=== PATIENT | male | born 1935 | race Hispanic/Latino ===

== ENCOUNTER 2019-05-10 23:42 | Emergency (ER) | payer MEDICARE ==
[~2019-05-10] VITALS: Ht 160 cm; Wt 73.5 kg
[2019-05-11 01:02] LABS: INR 0.89; PROTHROMBIN TIME 12.5 seconds (11.9-14.5)
[2019-05-11 01:03] LABS: PARTIAL THROMBOPLASTIN TIME 28.2 seconds (23.8-35.5)
[2019-05-11 01:06] LABS: BASOPHILS % 0.3 % (0.0-1.0); EOSINOPHILS # (AUTO) 0.2 (0.0-0.4); EOSINOPHILS % 2.8 % (0.0-6.0); HEMATOCRIT 42.4 % (38.2-49.6); HEMOGLOBIN 13.9 g/dL (14.0-18.0); LYMPHOCYTES # (AUTO) 1.2 (1.0-3.2); LYMPHOCYTES % 21.1 % (18.0-39.1); MEAN CORPUSCULAR HEMOGLOBIN 29.6 pg (28-32); MEAN CORPUSCULAR HGB CONC 32.8 g/dL (31-35); MEAN CORPUSCULAR VOLUME 90.4 fL (81-99); MONOCYTES # (AUTO) 0.5 (0.2-0.8); MONOCYTES % 8.9 % (4.4-11.3); NEUTROPHILS # (AUTO) 3.8 (2.1-6.9); NEUTROPHILS % 66.6 % (38.7-80.0); PLATELET COUNT 190 x10e3/uL (140-360); RED BLOOD COUNT 4.69 x10e6/uL (4.3-5.7); RED CELL DISTRIBUTION WIDTH 13.3 % (11.7-14.4)
[2019-05-11 01:17] LABS: ALANINE AMINOTRANSFERASE 24 IU/L (0-55); ALBUMIN 3.8 g/dL (3.5-5.0); ALBUMIN/GLOBULIN RATIO 1.1 (0.8-2.0); ALKALINE PHOSPHATASE 165 IU/L (40-150); ANION GAP 16.7 mmol/L (8-16); BLOOD UREA NITROGEN 18 mg/dL (7-26); BUN/CREATININE RATIO 17 (6-25); CALCIUM 10.3 mg/dL (8.4-10.2); CARBON DIOXIDE 23 mmol/L (22-29); CHLORIDE 106 mmol/L (98-107); CREATININE, SERUM 1.03 mg/dL (0.72-1.25); EST GLOMERULAR FILTRATION RATE > 60 ML/MIN (60-); GLUCOSE 97 mg/dL (74-118); POTASSIUM 4.7 mmol/L (3.5-5.1); SODIUM 141 mmol/L (136-145)
--- NOTE | 2019-05-11 01:18 | Diagnostic Imaging Report ---
PELVIS AP 1-2 VIEWS - 1 view HISTORY: Pain COMPARISON: None available. FINDINGS: See impression IMPRESSION: No acute displaced fracture or dislocation visualized. Signed by: Dr. Pop Garcia MD on 05/11/2019 1:15 AM
--- NOTE | 2019-05-11 01:23 | Diagnostic Imaging Report ---
EXAMINATION: CHEST SINGLE (NOT PORTABLE) INDICATION: ^FALL ^[id number] ^0045 COMPARISON: None FINDINGS: AP view TUBES and LINES: None. LUNGS: Limited by low lung volumes. Mild central vascular congestion, accentuated by low lung volumes. PLEURA: No pneumothorax. Suspected small left pleural effusion. HEART AND MEDIASTINUM: The cardiomediastinal silhouette is enlarged, accentuated by low lung volumes. Aorta is calcified and mildly tortuous. BONES AND SOFT TISSUES: No acute osseous lesion. Soft tissues are unremarkable. UPPER ABDOMEN: No free air under the diaphragm. IMPRESSION: Limited by low lung volumes. Mild vascular congestion and suspected small left pleural effusion. Signed by: Dr. Pop Garcia MD on 05/11/2019 1:19 AM
--- NOTE | 2019-05-11 01:35 | Diagnostic Imaging Report ---
ADDENDUM #1 6 x 3.4 cm left parietal occipital scalp soft tissue density mass possibly represents epidermal inclusion cyst. No acute hematoma. Finding discussed with ER physician Dr. Roman by phone at 2:30 AM on 05/11/2019. Signed by: Dr. Shantell Holcomb M.D. on 05/11/2019 2:34 AM ORIGINAL REPORT EXAMINATION: Head CT without contrast. HISTORY:Fall. COMPARISON:None. TECHNIQUE: Multidetector axial images were obtained from the foramen magnum to the vertex without contrast. The images were reconstructed using brain and bone algorithms. Thin section brain images were reformatted into coronal and sagittal planes. Dose modulation, iterative reconstruction, and/or weight based adjustment of the mA/kV was utilized to reduce the radiation dose to as low as reasonably achievable. Intravenous contrast: None IMAGE QUALITY: Acceptable. FINDINGS: Skull/scalp: Large left parieto-occipital scalp hematoma that approximately measures 6 x 3.4 cm. No radiopaque foreign body or soft tissue emphysema. No acute depressed or displaced calvarial fracture. Parenchyma: Nonspecific bilateral frontoparietal patchy white matter hypodensity are likely related to small vessel ischemic changes. No acute hemorrhage, mass or acute major vascular territorial infarct. Arteries: No density suggestive of thrombosis. Atherosclerotic calcification in bilateral carotid siphon. Dural sinuses: No abnormal density suggestive of thrombosis. Ventricles: No hydrocephalus or displacement. Extra-axial spaces: No abnormal density. Brain volume: Generalized age-related cerebral volume loss. Craniocervical junction: No mass, Chiari malformation, or basilar invagination. Sella: No mass. Paranasal/mastoid sinuses: Mucosal thickening in left posterior ethmoid sinus. IMPRESSION: 1. Large left parieto-occipital scalp edema/hematoma. No acute fracture. 2. No acute posttraumatic intracranial abnormality. 3. Moderate supratentorial white matter microvascular ischemic changes. 4. Generalized age-related cerebral volume loss. Signed by: Dr. Shantell Holcomb M.D. on 05/11/2019 1:32 AM
[2019-05-11 01:41] LABS: CREATINE KINASE 48 IU/L (30-200)
--- NOTE | 2019-05-11 01:41 | Diagnostic Imaging Report ---
History: Fall. Comparison studies: None Technique: Axial images were obtained through the cervical region.. Coronal and sagittal images reconstructed from the axial data. Dose modulation, iterative reconstruction, and/or weight based adjustment of the mA/kV was utilized to reduce the radiation dose to as low as reasonably achievable. Intravenous contrast: None Findings: Fractures: None. Soft tissue injuries: None. Atlantoaxial articulation: Intact. Alignment: Normal lordosis. No scoliosis. Cervicomedullary junction: No abnormalities. The foramen magnum is patent. Soft tissues: Multiple calcifications in heterogeneous 2 cm nodule in left lobe of thyroid gland. Vertebrae: No fractures, infection or neoplasm. Degenerative changes: C3-C4: Posterior disc osteophyte complex results in moderate canal stenosis. Severe right and moderate left foraminal stenosis due to facet and uncovertebral arthrosis. C4-C5: Mild bilateral foraminal stenosis due to advanced facet arthrosis. C5-C6: Moderate right foraminal stenosis due to facet and uncovertebral arthrosis. C6-C7: Mild right foraminal stenosis due to uncovertebral arthrosis. IMPRESSION: 1. No acute cervical spine fracture or dislocation. 2. Ligament, spinal cord and or vascular abnormalities cannot be excluded on the basis of this examination. 3. Cervical spondylosis as detailed above. 4. A 2 cm nodule in left lobe of thyroid gland can be further evaluated with dedicated thyroid ultrasonogram if previous workup has not been done. Signed by: Dr. Shantell Holcomb M.D. on 05/11/2019 1:38 AM
[2019-05-11 04:07] LABS: CLARITY,URINE CLOUDY (CLEAR); COLOR,URINE AMBER (YELLOW); LEUKOCYTE ESTERASE ,URINE NEGATIVE (NEGATIVE); NITRITE,URINE NEGATIVE (NEGATIVE); PROTEIN,URINE DIPSTICK 1+ (NEGATIVE)
[2019-05-11 04:08] LABS: BILIRUBIN,URINE 1+ (NEGATIVE); KETONES,URINE NEGATIVE (NEGATIVE); URINE UROBILINOGEN 1 mg/dL (0.2 - 1)
[2019-05-11 04:14] LABS: BACTERIA,URINE MANY /HPF; RBC,URINE >50 /HPF (0-5); WBC,URINE (MAN) 21-50 /HPF (0-5)
[2019-05-11 04:15] LABS: EPITHELIAL CELLS,URINE FEW /LPF
[2019-05-11] MEDS ORDERED: MEROPENEM 1GRAM 1 GM in SODIUM CHLORIDE 0.9% 100 ML 100 ML IV ONE (04:30)
[2019-05-11] MEDS ORDERED: MEROPENEM 1 GM VIAL ONE ×2 (04:51)
[2019-05-11] MEDS ORDERED: MEROPENEM 1GM 100 ML IV ONE (05:05)
--- OUTSIDE RECORDS SUMMARY | 2019-05-12 14:01 | XMS REPORT ---
Author [facility] Address Unknown Phone Unavailable Care Team Providers Care Heel Breaster Name Role Phone Lupe SAUL COOPER Unavailable Unavailable Problems This patient has no known problems. Allergies, Adverse Reactions, Alerts This patient has no known allergies or adverse reactions. Medications This patient has no known medications. Encounters Start Date/Time End Date/Time Encounter Type Admission Type Attending Clinicians Care Facility Care Department Encounter ID 2019-04-06 23:51:00 2019-04-06 19:38:00 Inpatient E [facility] MED [id number] Results Test Description Test Time Test Comments Text Results Atomic Results Result Comments CT CERVICAL SPINE WO 2019-05-11 01:32:00 [place] [id number] Patient Name: BARI AGOSTO MR #: [id number] : 1935 Age/Sex: 84/M Req #: [id number] Adm Physician: Ordered by: COOPER SAUL MD Report #: [id number] Location: ER Room/Bed: Procedure: [id number] CT/CT CERVICAL SPINE WO Exam Date: 05/11/19 Exam Time: 34 REPORT STATUS: Signed History: Fall. Comparison studies: None T echnique: Axial images were obtained through the cervical region.. Coronal and sagittal images reconstructed from the axial data. Dose modulation, iterative reconstruction, and/or weight based adjustment of the mA/kV was utilized to reduce the radiation dose to as low as reasonably achievable. Intravenous contrast: None Findings: Fractures: None. Soft tissue injuries: None. Atlantoaxial articulation: Intact. Alignment: Normal lordosis. No scoliosis. Cervicomedullary junction: No abnormalities. The foramen magnum is patent. Soft tissues: Multiple calcifications in heterogeneous 2 cm nodule in left lobe of thyroid gland. Vertebrae: No fractures, infection or neoplasm. Degenerative changes: C3-C4: Posterior disc osteophyte complex results in moderate canal stenosis. Severe right and moderate left foraminal stenosis due to facet and uncovertebral arthrosis. C4-C5: Mild bilateral foraminal stenosis due to advanced facet arthrosis. C5- C6: Moderate right foraminal stenosis due to facet and uncovertebral arthrosis. C6-C7: Mild right foraminal stenosis due to uncovertebral arthrosis. IMPRESSION: 1. No acute cervical spine fracture or dislocation. 2. Ligament, spinal cord and or vascular abnormalities cannot be excluded on the basis of this examination. 3. Cervical spondylosis as detailed above. 4. A 2 cm nodule in left lobe of thyroid gland can be further evaluated with dedicated thyroid ultrasonogram if previous workup has not been done. Signed by: Dr. Shantell Holcomb M.D. on 05/11/2019 1:38 AM Dictated By: SHANTELL HOLCOMB MD 7 Transcribed By: AMANDEEP on 05/11/19137 COPY TO: COOPER SAUL MD CT BRAIN WO 2019-05-11 01:26:00 [place] [address] Patient Name: BARI AGOSTO MR #: [id number] : 1935 Age/Sex: 84/M Req #: [id number] Adm Physician: Ordered by: COOPER SAUL MD Report #: [id number] Location: Room/Bed: Procedure: [id number] CT/CT BRAIN WO Exam Date: 05/11/19 Exam Time: 0030 REPORT STATUS: Signed ADDENDUM #1 6 x 3.4 cm left parietal occipital scalp soft tissue density mass possibly represents epidermal inclusion cyst. No acute hematoma. Finding discussed with ER physician Dr. Saul by phone at 2:30 AM on 05/11/2019. Signed by: Dr. Shantell Holcomb M.D. on 05/11/2019 2:34 AM ORIGINAL REPORT EXAMINATION: Head CT without contrast. HISTORY:Fall. COMPARISON:None. TECHNIQUE: Multidetector axial images were obtained from the foramen magnum to the vertex without contrast. The images were reconstructed using brain and bone algorithms. Thin section brain images were reformatted into coronal and sagittal planes. Dose modulation, iterative reconstruction, and/or weight based adjustment of the mA/kV was utilized to reduce the radiation dose to as low as reasonably achievable. Intravenous contrast: None IMAGE QUALITY: Acceptable. FINDINGS: Skull/scalp: Large left parieto- occipital scalp hematoma that approximately measures 6 x 3.4 cm. No radiopaque foreign body or soft tissue emphysema. No acute depressed or displaced calvarial fracture. Parenchyma: Nonspecific bilateral frontoparietal patchy white matter hypodensity are likely related to small vessel ischemic changes. No acute hemorrhage, mass or acute major vascular territorial infarct. Arteries: No density suggestive of thrombosis. Atherosclerotic calcification in bilateral carotid siphon. Dural sinuses: No abnormal density suggestive of thrombosis. Ventricles: No hydrocephalus or displacement. Extra-axial spaces: No abnormal density. Brain v olume: Generalized age-related cerebral volume loss. Craniocervical junction: No mass, Chiari malformation, or basilar invagination. Sella: No mass. Paranasal/mastoid sinuses: Mucosal thickening in left posterior ethmoid sinus. IMPRESSION: 1. Large left parieto-occipital scalp edema/hematoma. No acute fracture. 2. No acute posttraumatic intracranial abnormality. 3. Moderate supratentorial white matter microvascular ischemic changes. 4. Generalized age-related cerebral volume loss. Signed by: Dr. Shantell Holcomb M.D. on 05/11/2019 1:32 AM Dictated By: SHANTELL HOLCOMB MD 0234 Transcribed By: AMANDEEP on 05/11/19 013 COPY TO: COOPER SAUL MD CHEST SINGLE (NOT PORTABLE) 2019-05-11 01:15:00 [place] [address] Patient Name: BARI AGOSTO MR #: [id number] : 1935 Age/Sex: 84/M Req #: [id number] Adm Physician: Ordered by: COOPER SAUL MD Report #: [id number] Location: ER Room/Bed: Procedure: [id number] DX/CHEST SINGLE (NOT PORTABLE) Exam Date: 05/11/19 Exam Time: 44 REPORT STATUS: Signed EXAMINATION: CHEST SINGLE (NOT PORTABLE) INDICATION: [id number] COMPARISON: None FINDINGS: AP view TUBES and LINES: None. LUNGS: Limited by low lung volumes. Mild central vascular congestion, accentuated by low lung volumes. PLEURA: No pneumothorax. Suspected small left pleural effusion. HEART AND MEDIASTINUM: The cardiomediastinal silhouette is enlarged, accentuated by low lung volumes. Aorta is calcified and mildly tortuous. BONES AND SOFT TISSUES: No acute osseous lesion. Soft tissues are unremarkable. UPPER ABDOMEN: No free air under the diaphragm. IMPRESSION: Limited by low lung volumes. Mild vascular congestion and suspected small left pleural effusion. Signed by: Dr. Pop Rodriguez MD on 05/11/2019 1:19 AM Dictated By: POP RODRIGUEZ MD 8 Transcribed By: AMANDEEP on 05/11/19118 COPY TO: COOPER SAUL MD PELVIS AP 1-2 VIEWS 2019-05-11 01:14:00 [place] [address] Patient Name: BARI AGOSTO MR #: [id number] : 1935 Age/Sex: 84/M Req #: [id number] Adm Physician: Ordered by: COOPER SAUL MD Report #: [id number] Location: ER Room/Bed: Procedure: [id number] DX/PELVIS AP 1-2 VIEWS Exam Date: 05/11/19 Exam Time: 0040 REPORT STATUS: Signed PELVIS AP 1-2 VIEWS - 1 view HISTORY: Pain C OMPARISON: None available. FINDINGS: See impression IMPRESSION: No acute displaced fracture or dislocation visualized. Signed by: Dr. Pop Rodriguez MD on 05/11/2019 1:15 AM Dictated By: POP RODRIGUEZ MD 4 Transcribed By: AMANDEEP on 05/11/19114 COPY TO: COOPER SAUL MD
== END 2019-05-11 05:50 ==
LOC: ER 23:42
DX: Z04.3 Encounter for examination and observation following other accident (principal); W01.0XXA Fall on same level from slipping, tripping and stumbling without subsequent striking against object, initial encounter; Y92.128 Other place in nursing home as the place of occurrence of the external cause; N30.91 Cystitis, unspecified with hematuria; I10 Essential (primary) hypertension; I69.354 Hemiplegia and hemiparesis following cerebral infarction affecting left non-dominant side
CPT/HCPCS: 36415; 70450; 71045; 72125; 72170; 80053; 81001; 82550; 82553; 84484; 85025; 85610; 85730; 87086; 99284; J2185 ×2

== ENCOUNTER 2019-05-13 14:58 | Observation (INO) | payer MEDICARE ==
[~2019-05-13] VITALS: Ht 160 cm; Wt 73.5 kg
[2019-05-13 15:42] LABS: BASOPHILS % 0.3 % (0.0-1.0); EOSINOPHILS % 0.3 % (0.0-6.0); HEMATOCRIT 40.4 % (38.2-49.6); HEMOGLOBIN 13.4 g/dL (14.0-18.0); LYMPHOCYTES # (AUTO) 0.9 (1.0-3.2); LYMPHOCYTES % 10.5 % (18.0-39.1); MEAN CORPUSCULAR HEMOGLOBIN 30.1 pg (28-32); MEAN CORPUSCULAR HGB CONC 33.2 g/dL (31-35); MEAN CORPUSCULAR VOLUME 90.8 fL (81-99); MONOCYTES # (AUTO) 0.5 (0.2-0.8); MONOCYTES % 5.3 % (4.4-11.3); NEUTROPHILS # (AUTO) 7.3 (2.1-6.9); NEUTROPHILS % 83.3 % (38.7-80.0); PLATELET COUNT 213 x10e3/uL (140-360); RED BLOOD COUNT 4.45 x10e6/uL (4.3-5.7); RED CELL DISTRIBUTION WIDTH 13.2 % (11.7-14.4)
[2019-05-13 15:59] LABS: ALANINE AMINOTRANSFERASE 25 IU/L (0-55); ALBUMIN 3.6 g/dL (3.5-5.0); ALBUMIN/GLOBULIN RATIO 1.2 (0.8-2.0); ALKALINE PHOSPHATASE 160 IU/L (40-150); ANION GAP 15.8 mmol/L (8-16); BLOOD UREA NITROGEN 32 mg/dL (7-26); BUN/CREATININE RATIO 15 (6-25); CALCIUM 10.1 mg/dL (8.4-10.2); CARBON DIOXIDE 23 mmol/L (22-29); CHLORIDE 103 mmol/L (98-107); CREATINE KINASE 39 IU/L (30-200); CREATININE, SERUM 2.19 mg/dL (0.72-1.25); EST GLOMERULAR FILTRATION RATE 29 ML/MIN (60-); GLUCOSE 125 mg/dL (74-118); SODIUM 136 mmol/L (136-145)
--- NOTE | 2019-05-13 16:01 | Diagnostic Imaging Report ---
EXAMINATION: CHEST SINGLE (PORTABLE) INDICATION: Chest pain. COMPARISON: Chest radiograph 05/11/2019. FINDINGS: TUBES and LINES: None. LUNGS: Low lung volumes. Central vascular congestion with mild interstitial opacities. Linear subsegmental atelectasis in the right midlung. Patchy bibasilar opacities. PLEURA: No pleural effusion or pneumothorax. HEART AND MEDIASTINUM: The cardiomediastinal silhouette is unremarkable. There are atherosclerotic calcifications within the aorta. BONES AND SOFT TISSUES: No acute osseous abnormality. UPPER ABDOMEN: No free air under the diaphragm. Surgical clips project over the right upper quadrant. IMPRESSION: Low lung volumes with possible mild pulmonary interstitial edema. Patchy bibasilar opacities, likely atelectasis, although infection is possible in the appropriate clinical setting. Signed by: Dr. Zenaida Berry MD on 05/13/2019 3:58 PM
[2019-05-13 16:19] LABS: POTASSIUM 5.8 mmol/L (3.5-5.1)
[2019-05-13] MEDS ORDERED: SOD POLYSTYRENE SULFONATE SUSP 15 GM/60 ML BTL PO ONE (17:15)
[2019-05-13] MEDS ORDERED: DEXTROSE 50% SYRINGE 50 ML IV STA (17:58)
[2019-05-13] MEDS ORDERED: INSULIN REGULAR, HUMAN 100 UNIT/1 ML 3ML VIAL IV ONE (18:30)
[2019-05-13] MEDS ORDERED: SODIUM CHLORIDE 0.9% 500ML 500 ML IV STA (20:04)
--- NOTE | 2019-05-13 21:40 | NUR ---
Patient arrived to floor via stretcher. Very lethargic. AAOx1 Patient with dementia. Admit and assessment completed. Bolus of 500cc fluids given per MD order.
[2019-05-13] MEDS ORDERED: DEXTROSE 50% SYRINGE 50 ML IV ONE (21:59)
[2019-05-13 23:00] VITALS: BP 113/57
--- NOTE | 2019-05-13 23:44 | NUR ---
Chief complaint: Chest pain History of Present Illness Patient is an 83-year-old male with Past medical history of hypertension, hyperlipidemia, CVA with residual left-sided weakness, benign prostatic hyperplasia status post TURP, possible dementia who presented to ER/brought by [facility]. I was called by nursing staff and advise that patient was complaining of chest pain hence the patient was brought to the emergency department for further evaluation and treatment. I did speak with patient's [id number] who was at the bedside at the time of my evaluation in the emergency room department at [facility]. Specifically patient was having discomfort in the chest. He denies shortness of breath. No nausea, no vomiting, no abdominal pain. No fever no chills. He was complaining of discomfort in the rectal area. He denies having rectal bleeding. The patient has been treated recently for urinary tract infection and has been discharged approximately 4 weeks ago from [facility]. He was treated for presumed sepsis and did have alt ered mental status. There was no demonstratable bacteria but empirically treated for possible sepsis and his mental status did improve. The patient was brought to the hospital at [facility] a few days ago and evaluated for urinary tract infection and [place] [facility] [place] [facility]. Now the patient has been admitted for evaluation pertaining chest pain and noted to have dehydration with an elevated BUN of 2.1. Basically patient's creatinine is around 1.2 or so and not known to have a history of renal failure. He was also noted to have an elevated potassium level of 5.8. He is being admitted for the purpose of addressing these issues.No recent changes from patient baseline mental status Past Medical History: CVA (cerebrovascular accident) HTN (hypertension) HLD - Hyperlipidemia CT brain and cervical spine done at [facility] last demontrated no acute fracture grade I anterior listhesis of C4/C5, found to have a cystic lesion in the left occipital scalp, Resolved Kidney stones Family History: No family history items have been selected or recorded. Procedure history: Cholecystectomy TURP - Transurethral resection of prostate Cystourethroscopy Social History Social & Psychosocial Habits History of smoking in the past. Alcohol 04/07/2019 Use: Past Type: Beer Frequency: 3-5 times per week Substance Abuse 09/09/2015 Use: None OBJECTIVE: GENERAL: The patient has been in no distress, follows commands. He is oriented to person. Not to time. VITALS SIGNS: Vital signs: 92/52, respiration 18, pulse 65, temperature 97.9, O2 saturation in room air 99% HEENT: Atraumatic. NECK: Supple, no JVD. LUNGS: Clear to auscultation. CARDIOVASCULAR: Regular rate and rhythm. ABDOMEN: Soft, nontender and nondistended. EXTREMITIES: No edema. NEUROLOGIC: With left-sided weakness from previous stroke. Rectal examination: Internal hemorrhoids noted Lab data: CBC revealed hemoglobin 13.4, WBC 8.75, platelet count 230,000. Sodium 136, potassium 4.8, chloride 103, CO2 23, BUN 32, creatinine 2.19, glucose 125. Alkaline phosphatase 160. Troponin 0.001. EKG demonstrated normal sinus rhythm no acute changes Chest x-rays: IMPRESSION: Low lung volumes with possible mild pulmonary interstitial edema. Patchybibasilar opacities, likely atelectasis, although infection is possible in the appropriate clinical setting. Impression and Plan Impression: Chest pain etiology determined rule out acute coronary syndrome Hypotension Acute kidney injury Dehydration Hyperkalemia History UTI History of CVA with residual hemiparesis on the left side Left occipital scalp cystic lesion Degenerative disc disease of cervical spine Hypertension Hyperlipidemia BPH Possible Alzheimer's disease HemorROIDS Plan: We will admit to medicine Activity as tolerated Vitals as per unit policy Follow-up labs DVT prophylaxis Consult cardiology Follow-up kidney function
[2019-05-14] VITALS (7 sets, daily range): BP systolic 105–124; BP diastolic 52–68
[2019-05-14] MEDS ORDERED: REMERON15 M1 PO (03:56)
[2019-05-14] MEDS ORDERED: ULTRAM50 MG PO (03:56)
[2019-05-14] MEDS ORDERED: ACETAMINOP325 MG/10 PO (03:59)
[2019-05-14] MEDS ORDERED: COREG12.5 MG PO (03:59)
[2019-05-14] MEDS ORDERED: LORATADINE10 MG PO (04:04)
[2019-05-14] MEDS ORDERED: FAMOTIDINE20 MG PO (04:05)
[2019-05-14] MEDS ORDERED: OMEGA-31000 MG PO (04:07)
[2019-05-14] MEDS: SODIUM CHLORIDE 0.9% 1000ML 1,000 ML IV SCH ×2 (06:22→10:37)
--- NOTE | 2019-05-14 06:32 | NUR ---
Patient continue to rest quitly with no c/o at this time. Continue monitor.
[2019-05-14] MEDS ORDERED: AMLODIPINE BESY10 MG PO (06:50)
[2019-05-14] MEDS ORDERED: CETIRIZINE HCL10 MG PO (06:52)
--- NOTE | 2019-05-14 09:02 | NUR ---
I spoke with Dr. Montoya and he asked that the bmp he put in the computer be placed in the stat category.
[2019-05-14 09:18] LABS: ANION GAP 15.7 mmol/L (8-16); CALCIUM 9.8 mg/dL (8.4-10.2); CREATININE, SERUM 1.32 mg/dL (0.72-1.25); POTASSIUM 4.7 mmol/L (3.5-5.1)
[2019-05-14] MEDS: CARVEDILOL 3.125 MG TAB PO SCH ×2 (09:30→17:09)
[2019-05-14] MEDS ORDERED: ASPIRIN 81 MG CHEW TAB PO ONE (09:30)
[2019-05-14] MEDS ORDERED: ASPIRIN 325 MG TAB PO ONE (09:30)
[2019-05-14] MEDS: HYDROCORTISONE ACETATE 25 MG/SUPP.RECT SUPP RC SCH ×2 (10:37→17:09)
--- NOTE | 2019-05-14 12:49 | NUR ---
Spoke to Dr. Montoya. Informed him that pt does not meet inpatient status. 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 states currently pending cardiology eval for chest pain, but anticipates pt dc'ing tomorrow. gave order to change to observation.
--- NOTE | 2019-05-14 15:10 | NUR ---
Visit made by the Spiritual Care Department Pastoral Visitor, Magdalene Teresa. PV provided pastoral presence, hospitality, prayer, and supportive listening. Pastoral Visitor informed pt/family of the scope of [employer] Specialist Services and availability. ABDULAZIZ ALVES Circular Knitter Helper Spiritual Care Department O: [phone] Pager: [phone] ([phone] number calling from)
--- NOTE | 2019-05-14 16:34 | NUR ---
MEDICINE ATTENDING Coverage for Dr Montoya DATE 05/14/19 SUBJECTIVE: AO X 2 he doesnt know the year. Doesnt know the president of the [facility]/[place] patient with improved creatinine he says he ate well REVIEW OF SYSTEMS: No bleeding, no rash OBJECTIVE: VITALS SIGNS: Reviewed per EMR. GENERAL: NAD, talks readily. Mild slurred speech HEENT: Normocephalic, atraumatic. NECK: Supple, no JVD. LUNGS: Clear to auscultation. no rhonchi. CARDIOVASCULAR: Regular rate and rhythm. No m/r/g ABDOMEN: Soft, nontender and nondistended. EXTREMITIES: No edema. No clubbing LABS: bun 30, cr 1.32. hco3 19. k 4.. Chest x-rays: no new updates Previously with CXR low lung volumes with possible mild pulmonary interstitial edema. Patchy bibasilar opacities, likely atelectasis, although infection is possible in the appropriate clinical setting. 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 Cardiology performing risk stratification Follow sepsis workup. Urine/blood cultures Repeat CXR tommorrow, ensure no worsening lung process DVT prophylaxis
--- NOTE | 2019-05-14 17:42 | Consultation ---
DATE OF CONSULTATION: 05/14/2019 Cardiology Consultation REQUESTING PHYSICIAN: Dr. Montoya. REASON FOR CONSULTATION: Chest pain. HISTORY OF PRESENT ILLNESS: This is an 84-year-old man with hypertension, hyperlipidemia, history of CVA with residual left-sided weakness, BPH status post TURP, who was [facility] due to complaint of chest pain. No family is available at bedside and despite the use of a telex operator history is limited due to the patient being a poor historian. The patient indicates he had chest pressure, but states it occurred last week. He was unable to describe the severity of the pain, but stated it lasted minutes at a time. His main complaint is pain in his buttocks. On questioning, he does also endorse some shortness of breath. No further history could be obtained from the patient. REVIEW OF SYSTEMS: Negative except as per HPI. PAST MEDICAL HISTORY: 1. Hypertension. 2. Hyperlipidemia. 3. History of CVA with residual left-sided weakness. 4. BPH status post TURP. PAST SURGICAL HISTORY: 1. Cholecystectomy. 2. TURP. 3. Cystourethroscopy. ALLERGIES: PLEASE SEE EMR. MEDICATIONS: Please see medication list. SOCIAL HISTORY: Prior smoker. Denies alcohol or illicit drugs. FAMILY HISTORY: Noncontributory to current illness. PHYSICAL EXAMINATION: VITAL SIGNS: Temperature 97.3 degrees, pulse 80, respiratory rate 20, blood pressure 124/68, oxygen saturation 97% on room air. GENERAL: Elderly man, well-developed, well-nourished, no acute distress. HEENT: Normocephalic, atraumatic. Pupils are equal. No scleral icterus. NECK: Supple. No thyroid or cervical lymphadenopathy. No carotid bruits. LUNGS: Clear to auscultation bilaterally. No wheeze or crackles. CARDIOVASCULAR: Normal rate, regular rhythm. No murmur. Normal S1, S2. ABDOMEN: Soft, nontender. EXTREMITIES: No edema. LABORATORY DATA: WBC 8.75, hemoglobin 13.4, hematocrit 40.4, platelets 213. Sodium 137, potassium 4.7, chloride 105, CO2 19, BUN 30, creatinine 1.32. Troponin less than 0.001. EKG normal sinus rhythm, normal ECG. IMPRESSION: 1. Chest pain. 2. Acute kidney injury, improving. 3. Hypotension. 4. Hyperlipidemia. 5. History of cerebrovascular accident with residual left-sided weakness. 6. Benign prostatic hyperplasia status post transurethral resection of the prostate. RECOMMENDATIONS: No evidence of myocardial infarction on serial cardiac biomarkers. Obtain echocardiogram. Check fasting lipid panel. Unclear patient's baseline. We will need to discuss with family for further ischemic evaluation versus medical management. Continue aspirin. Continue current cardiac medications. Monitor patient on telemetry while admitted. Thank you for this consult. We will continue to follow. Cecille Fritz MD ABS/MODL /[id number]
[2019-05-14] MEDS ORDERED: MIRTAZAPINE 15 MG TAB PO SCH (21:00)
--- NOTE | 2019-05-14 21:00 | NUR ---
Received change of shift report from AM nurse. Walking rounds completed.
[2019-05-15] VITALS: BP 132/59
--- NOTE | 2019-05-15 | NUR ---
Patient AAOx1. No noted pain or discomfort at this time. Patient has large lesion on back of his head. Patient turn q2 hours and prn. IS attemped but not successful. IV intact to right AC with ns at 75cc/hr. Tele SR. Continue monitor.
[2019-05-15 04:00] VITALS: BP 114/69
--- NOTE | 2019-05-15 04:54 | NUR ---
Patient received a bath. Repositioned in bed. No c/o at this time. Continue monitor.
[2019-05-15 06:40] LABS: CHOL/HDL RATIO 5.6 (3.9-4.7)
[2019-05-15 06:41] LABS: MAGNESIUM 1.9 MG/DL (1.3-2.1); PHOSPHORUS 2.4 MG/DL (2.3-4.7)
[2019-05-15 08:00] VITALS: BP 114/64
[2019-05-15] MEDS: CARVEDILOL 3.125 MG TAB PO SCH ×2 (08:40→16:26)
--- NOTE | 2019-05-15 08:55 | Diagnostic Imaging Report ---
EXAMINATION: CHEST SINGLE (PORTABLE) INDICATION: Shortness of breath COMPARISON: Chest radiograph of 05/13/2019 FINDINGS: LINES/TUBES:EKG leads overlie the chest. LUNGS:The lungs are moderately inflated. There is perihilar fullness and indistinctness of the pulmonary vasculature. No focal consolidation. PLEURA:Unchanged mild blunting of the left lateral costophrenic angle. MEDIASTINUM:Cardiomediastinal silhouette is stably enlarged. Atherosclerotic calcifications of the thoracic aorta. BONES/SOFT TISSUES:No acute osseous injury. ABDOMEN:No free air under the diaphragm. IMPRESSION: Slight improvement in mild interstitial pulmonary edema. Otherwise, no significant interval change. Signed by: Tiffanie Anderson MD on 05/15/2019 8:52 AM
[2019-05-15] MEDS ORDERED: ASPIRIN 81 MG CHEW TAB PO SCH ×2 (09:00)
[2019-05-15] MEDS ORDERED: MULTIVITAMINS/MINERALS TAB PO SCH (09:00)
[2019-05-15] MEDS: HYDROCORTISONE ACETATE 25 MG/SUPP.RECT SUPP RC SCH ×2 (10:14→16:26)
[2019-05-15] MEDS: SODIUM CHLORIDE 0.9% 1000ML 1,000 ML IV SCH (10:57)
[2019-05-15 12:00] VITALS: BP 107/58
--- NOTE | 2019-05-15 12:14 | NUR ---
SENT TO R1 FOR REVIEW DISCUSSED IN MDR. PT FOR F/U CXR TODAY. PT FROM [facility] AND PLAN IS TO RETURN THERE WHEN CLEARED.
[2019-05-15] MEDS ORDERED: Multivitamins/Minerals PO (12:59)
[2019-05-15] MEDS ORDERED: LASIX20 MG PO (12:59)
[2019-05-15] MEDS ORDERED: ASPIRIN CHEW81 MG PO (13:00)
[2019-05-15 13:28] VITALS: BP 107/58
--- NOTE | 2019-05-15 14:06 | NUR ---
R1 DETERMINATION: [facility] case account ending in 7583 has been reviewed and completed by [facility] Physicians. Service Line: Level of Care (LOC) / Admission Status Review Initial patient type was submitted as: IO - Initial Observation PAS Recommendation: OU
--- NOTE | 2019-05-15 14:35 | NUR ---
PT CLINICALS PICKED UP BY [facility] TO RETURN TO FACILITY
--- NOTE | 2019-05-15 14:37 | NUR ---
[facility] FACILITY DISCHARGE INFORMATION PATIENT HAS BEEN ACCEPTED TO: NAME: [facility] ADDRESS: [id number] MD: CARLOS ENRIQUE ROOM: 605 NURSE CALL REPORT TO: [phone]
[2019-05-15 16:25] VITALS: BP 127/76
--- NOTE | 2019-05-15 16:35 | NUR ---
CALL PLACED OUT TO DR. ESPINOZA REGARDING CLEARANCE- AWAITING CALLBACK.
--- NOTE | 2019-05-15 18:03 | NUR ---
Dr. Gomez rounding on patient, clearance given for patient to be transferred to [facility] facility.
--- NOTE | 2019-05-15 18:45 | NUR ---
REPORT CALLED TO [facility]- PATIENT TRANSFERRING TO ROOM 605. SPOKE AND GAVE TRANSFER REPORT TO ALMA NGUYEN AT [phone].
--- NOTE | 2019-05-15 19:01 | NUR ---
SPOKE WITH PATIENT'S [id number], DRU AGOSTO, TO RECEIVED TELEPHONE [facility] CONSENT RECEIVED AND WITNESS BY SECOND RN.
--- NOTE | 2019-05-15 19:09 | Progress Note ---
DATE: Cardiology Progress Note SUBJECTIVE: The patient is feeling better. No chest pain. OBJECTIVE: VITAL SIGNS: Temperature is 97.1, heart rate is 64, respirations are 19, blood pressure is 127/76, ox saturation 98% on room air. GENERAL: He is a well-appearing man lying comfortably in bed. CARDIOVASCULAR: Regular rate and rhythm. LUNGS: Clear to auscultation. ABDOMEN: Soft, nontender, nondistended. EXTREMITIES: Trace edema. LABORATORY DATA: Cardiac testing showed preserved left ventricular systolic function. IMPRESSION: 1. Precordial pain. 2. Acute on chronic kidney disease. 3. Hyperlipidemia. 4. Hypertension. 5. Cerebrovascular accident. RECOMMENDATIONS: The patient ruled out for acute myocardial infarction. His echocardiogram showed overall preserved left ventricular systolic function. The patient may be transferred back to the [facility] facility with outpatient stress testing. Ritchie Gomez DO BM/MODL /[id number]
--- NOTE | 2019-05-15 19:48 | NUR ---
PATIENT IN STABLE CONDITION WITH NO S/S OF RESPIRATORY DISTRESS- NO PAIN VOICED. [facility] CALL LIGHT IS WITHIN REACH, INSTRUCTED TO CALL FOR ASSISTANCE NEEDED. REPORT GIVEN TO ONCOMING NURSE.
--- NOTE | 2019-05-15 19:54 | NUR ---
Received change of shift report from AM nurse. Patient D/C to [facility] room 605. Ambulance arrived to transport patient.
--- NOTE | 2019-05-16 08:23 | Discharge Summary ---
This is coverage for Dr. Montoya. PRIMARY DIAGNOSIS: Dehydration. SECONDARY DIAGNOSES: Includes: 1. Hypertension without shock. 2. Acute kidney injury, better. 3. Chest pain, no evidence of acute coronary syndrome. 4. Hyperkalemia, resolved. 5. History of cerebrovascular accident, left hemiparesis. 6. Disease of C-spine. 7. Hypertension. 8. Hyperlipidemia. 9. Benign prostatic hyperplasia. 10. Possible Alzheimer disease. 11. Dementia. HOSPITAL COURSE: The patient with potassium of 5.8, creatinine 2.19 above his baseline. The patient also with hypotension, but responded easily to the fluids. Blood pressure was 89/39 on admit. The patient was admitted. Patient was treated with fluid. The patient improved. Culture was unremarkable with no significant growth. The patient strengthened and went back to walking with assistance at 30 feet with a walker. His normal baseline reported walking across the house. He quickly improved and was [facility]. FOLLOWUP: Dr. Montoya. DISPOSITION: [facility]. MEDICATIONS: See discharge medicine list for details. Of note, the patient was added on Lasix and some hypertensive medicines were decreased. ACTIVITY: As is, resume physical therapy and occupational therapy. NUTRITION: Cardiac diet. Greater than 30 minutes in direct care on this date and coordination. MD SANIYA Darden/PRISCILLA /[id number]
== END 2019-05-15 20:09 ==
LOC: ER 14:58 → INTOOBSV 17:55 → ERHOLD 17:55 → MED/SURG3 21:43
PROVIDERS: ADMIT Internal Medicine; ATTEND Internal Medicine
DX: E86.0 Dehydration (principal); R07.2 Precordial pain; E87.5 Hyperkalemia; E78.5 Hyperlipidemia, unspecified; I69.354 Hemiplegia and hemiparesis following cerebral infarction affecting left non-dominant side; N40.0 Benign prostatic hyperplasia without lower urinary tract symptoms; N17.9 Acute kidney failure, unspecified; I95.9 Hypotension, unspecified; F03.90 Unspecified dementia, unspecified severity, without behavioral disturbance, psychotic disturbance, mood disturbance, and anxiety; I12.9 Hypertensive chronic kidney disease with stage 1 through stage 4 chronic kidney disease, or unspecified chronic kidney disease; N18.9 Chronic kidney disease, unspecified
CPT/HCPCS: 36415 ×3; 71045 ×2; 80048; 80053; 80061; 82550; 82553; 82948; 83735; 84100; 84484 ×2; 85025; 93005; 93306; 97116; 97162; 99284; G0378 ×3; J1817; J7030 ×2; J7040; J7799